=== PATIENT | male | born 1970 | race Caucasian/White ===

== ENCOUNTER → 2017-04-18 | Day surgery (SDC) | payer MEDICARE ==
[~2017-04-18] MED LIST: ACIPHEX20 MG PO; DURAGESIC1 EAC1 TD; NUGENIX PO; PERCOCET10 PO
--- NOTE | ~2017-04-18 | OR ---
Unit #: [id number] #: [id number] Patient: LOBO HASTINGS JR [id number] [address] [place], [place] [address] [id number] O MR#: [id number] NAME: LOBO HASTINGS JR ROOM: Date of Procedure: 04/18/2017 Admission Date: 04/18/2017 Surgeon: Alvaro Kelly M.D. : 1970 Attending Physician: Alvaro Kelly M.D. Primary Care Physician: Jass Martínez M.D. OPERATIVE REPORT PREOPERATIVE DIAGNOSES Back pain, radiculopathy, degenerative lumbar disk disease with myelopathy, spinal stenosis. POSTOPERATIVE DIAGNOSES Back pain, radiculopathy, degenerative lumbar disk disease with myelopathy, spinal stenosis. PROCEDURE PERFORMED Lumbar epidural steroid injection with intravenous sedation and fluoroscopic guidance for needle localization. INDICATIONS FOR PROCEDURE The patient is a 47-year-old male with worsening back and bilateral lower extremity pain left somewhat greater than right. He has failed to settle with rehabilitative treatment and medical management alone. Workup was demonstrated worsening pathology especially at the L4-L5 level, where there is spinal stenosis worsened, degenerative disk disease with an annular bulge, worsening left-sided neural foraminal narrowing and overall, the changes are worse than the prior exam in 2013. There is mild stenosis at the L5-S1 level, the L3-L4 level had degenerative change, but was stable. Plan is for trial of epidural steroids based on his history of pathology, symptomatology, and response to treatment so far. DESCRIPTION OF PROCEDURE The patient was placed in a seated position. Standard monitors were applied. 2 mg of Versed were given for sedation and anxiolysis, which were adequate. Vital signs remained stable. Sterile prep and drape then of the lumbar area was performed. The skin at the L4-L5 level was localized with 1% lidocaine. An 18-gauge [employer] needle was then advanced via loss of resistance technique and fluoroscopic guidance in toward the epidural space. After confirming proper positioning with fluoroscopy and radiographic contrast, 80 mg of Depo-Medrol and 4 mL of 0.125% bupivacaine were deposited. The patient tolerated the procedure otherwise well and was discharged to the recovery room in stable condition. Dictated by... Alvaro Kelly M.D. LHP/modl Unit #: [id number] #: [id number] Patient: VENKATA LOBO Sexton TD: 04/18/2017 16:24 JOB #: [id number] OPERATIVE REPORT Page 1 of 1 X Alvaro Kelly MD X PROCEDURE OPERATIVE NOTE
== END | disposition home or self-care (01) ==
LOC: CCSC 07:24
DX: M51.06 Intervertebral disc disorders with myelopathy, lumbar region (principal); M51.16 Intervertebral disc disorders with radiculopathy, lumbar region; M48.06 Spinal stenosis, lumbar region; M19.179 Post-traumatic osteoarthritis, unspecified ankle and foot; K21.9 Gastro-esophageal reflux disease without esophagitis; Z79.891 Long term (current) use of opiate analgesic; Z79.899 Other long term (current) drug therapy
CPT/HCPCS: J1040; J2250

== ENCOUNTER → 2017-05-02 | Day surgery (SDC) | payer MEDICARE ==
--- NOTE | ~2017-05-02 | OR ---
Unit #: [id number] #: [id number] Patient: LOBO HASTINGS JR [id number] [address] [place], [place] [address] [id number] O MR#: [id number] NAME: LOBO HASTINGS JR ROOM: Date of Procedure: 05/02/2017 Admission Date: 05/02/2017 Surgeon: Alvaro Kelly M.D. : 1970 Attending Physician: Alvaro Kelly M.D. Primary Care Physician: Jass Martínez M.D. OPERATIVE REPORT PREOPERATIVE DIAGNOSES Back pain, radiculopathy, degenerative lumbar disk disease. POSTOPERATIVE DIAGNOSES Back pain, radiculopathy, degenerative lumbar disk disease. PROCEDURE PERFORMED Lumbar epidural steroid injection with intravenous sedation and fluoroscopic guidance for needle localization. INDICATIONS FOR PROCEDURE The patient is a 47-year-old male with worsening back and bilateral lower extremity pain that not settle with conservative measures. Workup demonstrated worse in pathology especially at the L4-L5 level, where there are degenerative disk disease, spinal stenosis, neural foraminal narrowing, and facet disease. Initial epidural steroid injection 2 weeks ago resulted in greater than 50% settling of his symptom complex. He did extremely well for the first few days before some of the pain return, but is maintained at greater than 50% settling. Based on his good initial response, his pathology, symptomatology, and treatment options, we are going to proceed with a second injection today. DESCRIPTION OF PROCEDURE The patient was placed in a seated position. Standard monitors were applied. 2 mg of Versed were given for sedation and anxiolysis, which were adequate. Vital signs remained stable. Sterile prep and drape then of the lumbar area was performed. The skin then at the L4-L5 level was localized with 1% lidocaine. An 18-gauge [employer] needle was then advanced via loss of resistance technique and fluoroscopic guidance in toward the epidural space. After confirming proper positioning with fluoroscopy and radiographic contrast, 80 mg of Depo-Medrol and 4 mL of 0.125% bupivacaine were deposited. The patient tolerated the procedure otherwise well and was discharged to recovery room in stable condition. Dictated by... Jonnie Gottlieb/donnie TD: 05/02/2017 13:24 JOB #: [id number] Unit #: [id number] #: [id number] Patient: VENKATA THORNTON,LOBO Sexton OPERATIVE REPORT Page 1 of 1 X Alvaro Kelly MD X PROCEDURE OPERATIVE NOTE
== END | disposition home or self-care (01) ==
LOC: CCSC 09:12
DX: M51.16 Intervertebral disc disorders with radiculopathy, lumbar region (principal); M48.06 Spinal stenosis, lumbar region; M99.73 Connective tissue and disc stenosis of intervertebral foramina of lumbar region; M53.86 Other specified dorsopathies, lumbar region; K21.9 Gastro-esophageal reflux disease without esophagitis; M19.179 Post-traumatic osteoarthritis, unspecified ankle and foot; Z79.891 Long term (current) use of opiate analgesic; Z79.899 Other long term (current) drug therapy
CPT/HCPCS: J1040; J2250